=== PATIENT | female | born 1960 | race Caucasian/White ===

== ENCOUNTER → 2016-10-10 | Outpatient (CLI) | payer BC ==
--- NOTE | 2016-10-10 14:11 | RAD ---
Transabdominal and endovaginal pelvic ultrasound History: Left ovarian cyst. Comparison: None. Technique: Transabdominal imaging was performed to evaluate optimally the uterine fundus. Endovaginal imaging was performed to evaluate optimally the endometrial stripe and lower uterine segment. Findings: Transabdominal imaging: Uterus and ovaries are not seen with transabdominal imaging. Endovaginal imaging: Uterus is absent. Right ovary measures 2.4 x 1.2 x 1.5 cm and is unremarkable. Left ovary measures 1.6 x 2.6 x 1.4 cm and demonstrates small dominant simple appearing follicle measuring 1.2 cm. No adnexal masses are seen. Impression: 1. Status post hysterectomy. 2. Left ovary demonstrates small follicle measuring 1.2 cm. 3. Unremarkable right ovary.
--- NOTE | 2016-10-11 10:33 | RAD ---
Radionuclide bone scan, 10/10/2016: History: Breast cancer Whole body imaging was performed following IV injection of 26 mCi of technetium 99m MDP. Comparison is made to a study from 04/15/2012. The following findings are delineated: 1. There is mildly increased activity in the proximal right femur in the expected region of the tip of the femoral component of the patient's right hip prosthesis. A similar finding was present on the previous study. The findings suggest chronic loosening. 2. Mildly increased activity at both feet, ankles and shoulders is likely arthritic in nature. 3. Activity of the radionuclide about the skeleton the major joints is otherwise symmetric. IMPRESSION: No bone scan findings to suggest osseous metastatic disease.
== END | disposition home or self-care (01) ==
LOC: NM 07:51
PROVIDERS: ATTEND Physician Assistant
DX: N83.02 Follicular cyst of left ovary (principal); Z90.710 Acquired absence of both cervix and uterus; Z85.3 Personal history of malignant neoplasm of breast
CPT/HCPCS: 76830; 76856; 78306; 96374; A9503

== ENCOUNTER → 2016-10-15 | Outpatient (CLI) | payer BC ==
--- NOTE | 2016-10-15 17:08 | RAD ---
AP and lateral right hip radiographs 10/15/2016 Clinical history: Right hip pain post fall. AP and 2 lateral digital radiographs of the right hip were obtained. The patient is status post right ROMEO. The prosthetic components are intact. No fracture or dislocation is seen. Impression: No fracture or dislocation right hip seen.
== END | disposition home or self-care (01) ==
LOC: RAD 13:54
PROVIDERS: ATTEND Physician Assistant
DX: M25.551 Pain in right hip (principal)
CPT/HCPCS: 73502